=== PATIENT | male | born 1955 | race Caucasian/White ===

== ENCOUNTER 2018-08-15 12:39 | Emergency (ER) | payer MEDICARE ==
[~2018-08-15] VITALS: Ht 177.8 cm; Wt 149.7 kg
[2018-08-15 12:44] VITALS: BP 122/62
[2018-08-15] MEDS: HALOPERIDOL LACT 5 MG/ML VIAL. IVP ONE (13:09)
[2018-08-15] MEDS: ONDANSETRON PF 4 MG/2 ML VIAL. IV ONE (13:09)
[2018-08-15 13:35] LABS: BASO # 0.1 x10^3/uL (0.0-0.2); BASO % 1 % (0-3); EOS # 0.1 x10^3/uL (0.0-0.7); EOS % 1 % (0-3); HEMATOCRIT 38.6 % (39.0-53.0); HEMOGLOBIN 11.9 g/dL (13.0-17.5); LYMPH # 1.9 x10^3/uL (1.0-4.8); LYMPH % 16 % (24-48); MEAN CORPUSCULAR HEMOGLOBIN 24 pg (25-35); MEAN CORPUSCULAR HGB CONC 31 g/dL (31-37); MEAN CORPUSCULAR VOLUME 76 fL (79-100); MONO # 1.1 x10^3/uL (0.0-1.1); MONO % 9 % (0-9); NEUT # 8.7 x10^3uL (1.8-7.7); NEUT % 73 % (31-73); PLATELET COUNT 766 x10^3/uL (140-400); RED BLOOD COUNT 5.07 x10^6/uL (4.30-5.70); WHITE BLOOD COUNT 11.9 x10^3/uL (4.0-11.0)
[2018-08-15 13:47] LABS: ALBUMIN 2.2 g/dL (3.4-5.0); ALBUMIN/GLOBULIN RATIO 0.4 (1.0-1.7); CALCIUM 8.4 mg/dL (8.5-10.1); CREATININE 1.6 mg/dL (0.7-1.3); GFR 43.9; POTASSIUM 4.3 mmol/L (3.5-5.1); TOTAL BILIRUBIN 0.3 mg/dL (0.2-1.0); TOTAL PROTEIN 7.5 g/dL (6.4-8.2)
[2018-08-15 13:57] LABS: PLT ESTIMATE INCREASED (ADEQUATE)
[2018-08-15 13:59] LABS: OVALOCYTES PRESENT; POLYCHROMASIA PRESENT; TOXIC GRANULATION PRESENT
[2018-08-15 14:00] LABS: PLATELET CLUMP PRESENT
[2018-08-15] MEDS: IV NORMAL SALINE 1,000ML 1,000 ML IV ONE ×4 (14:03→16:00)
[2018-08-15] MEDS: IOHEXOL 300 MG/ML 75 ML VIAL. IV ONE (14:12)
[2018-08-15 14:22] LABS: BILIRUBIN,URINE NEG (NEG); CLARITY,URINE CLEAR; COLOR,URINE AMBER; GLUCOSE,URINE >=1000 mg/dL (NEG); NITRITE,URINE NEG (NEG); UROBILINOGEN,URINE 0.2 mg/dL (0.2 mg/dL)
[2018-08-15 14:24] LABS: BACTERIA,URINE 0 /HPF (0-FEW); RBC,URINE RARE /HPF (0-2); SQUAMOUS EPITHELIAL CELL,UR OCC /LPF; WBC,URINE RARE /HPF (0-4)
--- NOTE | 2018-08-15 14:25 | ED.ADGEN ---
Past History Past Medical History: Diabetes, Hypertension, Hypothyroid, Other Past Surgical History: Cholecystectomy Alcohol Use: None Drug Use: None Adult General Chief Complaint Chief Complaint Abdominal pain, nausea HPI HPI Patient is a 63-year-old male with history of chronic abdominal pain prior cholecystectomy and appendicitis and abdominal wall hernia presents with episodic abdominal pain with nausea the past 2 weeks. Pain is worse after eating. Denies vomiting or diarrhea. No fever chills, sweats. Patient was in the process of weaning himself from morphine which she takes for his diabetic neuropathy. Last took 3 mg of morphine. No other acute symptoms or complaints. [ ] Review of Systems Review of Systems Review symptoms as per history of present illness. All other systems were reviewed and found to be within normal limits, except as documented in this note. Current Medications Current Medications Current Medications Medications (Trade) Dose Ordered Sig/Sharif Start Time Stop Time Status Last Admin Dose Admin Haloperidol Lactate (Haldol) 2.5 mg 1X ONCE 08/15/18 13:00 08/15/18 13:02 DC 08/15/18 13:09 2.5 MG Iohexol (Omnipaque 300 Mg/ml) 75 ml 1X ONCE 08/15/18 13:45 08/15/18 13:46 DC 08/15/18 14:12 75 ML Morphine Sulfate (Morphine 10mg Syringe) 5 mg 1X ONCE 08/15/18 14:45 08/15/18 14:46 DC 08/15/18 14:48 5 MG Ondansetron HCl (Zofran) 4 mg 1X ONCE 08/15/18 13:00 08/15/18 13:02 DC 08/15/18 13:09 4 MG Piperacillin Sod/ Tazobactam Sod 4.5 gm/Sodium Chloride 50 ml @ 100 mls/hr 1X ONCE 08/15/18 15:00 08/15/18 15:29 Sodium Chloride 1,000 ml @ 1,000 mls/hr 1X ONCE 08/15/18 14:00 08/15/18 14:59 DC 08/15/18 14:03 1,000 MLS/HR Allergies Allergies Allergies Coded Allergies Type Severity Reaction Last Updated Verified No Known Drug Allergies 08/15/18 No Physical Exam Physical Exam Constitutional: Well developed, well nourished, no acute distress, non-toxic appearance. [] HENT: Normocephalic, atraumatic, bilateral external ears normal, oropharynx moist, no oral exudates, nose normal. [] Eyes: PERRLA, EOMI, conjunctiva normal, no discharge. [] Neck: Normal range of motion, no tenderness, supple, no stridor. [] Cardiovascular:Heart rate regular rhythm, no murmur [] Lungs & Thorax: Bilateral breath sounds clear to auscultation [] Abdomen: Bowel sounds normal, soft, no tenderness, left upper quadrant pain, tenderness, fullness with palpable mass. Exam limited due to obesity. [] Skin: Warm, dry, no erythema, no rash. [] Back: No tenderness, no CVA tenderness. [] Extremities: No tenderness, no cyanosis, no clubbing, ROM intact, no edema. [] Neurologic: Alert and oriented X 3, normal motor function, normal sensory function, no focal deficits noted. [] Psychologic: Affect normal, judgement normal, mood normal. [] Current Patient Data Vital Signs Vital Signs Date Time Temp Pulse Resp B/P (MAP) Pulse Ox O2 Delivery O2 Flow Rate FiO2 08/15/18 12:44 97.8 103 20 94 Room Air Lab Results Laboratory Tests Test 08/15/18 12:59 08/15/18 13:00 08/15/18 14:05 Glucose (Fingerstick) 210 mg/dL (70-99) H White Blood Count 11.9 x10^3/uL (4.0-11.0) H Red Blood Count 5.07 x10^6/uL (4.30-5.70) Hemoglobin 11.9 g/dL (13.0-17.5) L Hematocrit 38.6 % (39.0-53.0) L Mean Corpuscular Volume 76 fL (79-100) L Mean Corpuscular Hemoglobin 24 pg (25-35) L Mean Corpuscular Hemoglobin Concent 31 g/dL (31-37) Red Cell Distribution Width 17.0 % (11.5-14.5) H Platelet Count 766 x10^3/uL (140-400) H Neutrophils (%) (Auto) 73 % (31-73) Lymphocytes (%) (Auto) 16 % (24-48) L Monocytes (%) (Auto) 9 % (0-9) Eosinophils (%) (Auto) 1 % (0-3) Basophils (%) (Auto) 1 % (0-3) Neutrophils # (Auto) 8.7 x10^3uL (1.8-7.7) H Lymphocytes # (Auto) 1.9 x10^3/uL (1.0-4.8) Monocytes # (Auto) 1.1 x10^3/uL (0.0-1.1) Eosinophils # (Auto) 0.1 x10^3/uL (0.0-0.7) Basophils # (Auto) 0.1 x10^3/uL (0.0-0.2) Toxic Granulation Present Platelet Estimate Increased (ADEQUATE) Platelet Clumps, EDTA Present Large Platelets Present Polychromasia Present Ovalocytes Present Prothrombin Time 18.9 SEC (9.4-11.4) H Prothrombin Time INR 2.0 (0.9-1.1) H Sodium Level 133 mmol/L (136-145) L Potassium Level 4.3 mmol/L (3.5-5.1) Chloride Level 95 mmol/L (98-107) L Carbon Dioxide Level 26 mmol/L (21-32) Anion Gap 12 (6-14) Blood Urea Nitrogen 30 mg/dL (8-26) H Creatinine 1.6 mg/dL (0.7-1.3) H Estimated GFR (Cockcroft-Gault) 43.9 BUN/Creatinine Ratio 19 (6-20) Glucose Level 245 mg/dL (70-99) H Lactic Acid Level 5.6 mmol/L (0.4-2.0) *H Calcium Level 8.4 mg/dL (8.5-10.1) L Total Bilirubin 0.3 mg/dL (0.2-1.0) Aspartate Amino Transferase (AST) 14 U/L (15-37) L Alanine Aminotransferase (ALT) 17 U/L (16-63) Alkaline Phosphatase 115 U/L (46-116) Total Protein 7.5 g/dL (6.4-8.2) Albumin 2.2 g/dL (3.4-5.0) L Albumin/Globulin Ratio 0.4 (1.0-1.7) L Lipase 49 U/L (73-393) L Urine Collection Type Unknown Urine Color Luma Urine Clarity Clear Urine pH 6.0 Urine Specific [place] 1.010 Urine Protein Neg (NEG-TRACE) Urine Glucose (UA) >=1000 mg/dL (NEG) Urine Ketones (Stick) Neg mg/dL (NEG) Urine Blood Neg (NEG) Urine Nitrite Neg (NEG) Urine Bilirubin Neg (NEG) Urine Urobilinogen Dipstick 0.2 mg/dL (0.2 mg/dL) Urine Leukocyte Esterase Neg (NEG) Urine RBC Rare /HPF (0-2) Urine WBC Rare /HPF (0-4) Urine Squamous Epithelial Cells Occ /LPF Urine Bacteria 0 /HPF (0-FEW) EKG EKG [] Radiology/Procedures Radiology/Procedures [CT abdomen pelvis: Thick-walled sigmoid colon with ruptured of the: Extensive free intraperitoneal air, stomach distended.] Course & Med Decision Making Course & Med Decision Making Pertinent Labs and Imaging studies reviewed. (See chart for details) [Patient with perforated bowel, elevated lactic acid presumed sepsis. Aggressive IV fluids, antibiotics given. Dr. Cano on-call for general surgery to evaluate at [facility]. Dr. Nation to admit. Patient tachycardic with stable blood pressure while in the ED.] Final Impression Final Impression [1 perforated sigmoid colon 2. Sepsis ] Dragon Disclaimer Dragon Disclaimer This electronic medical record was generated, in whole or in part, using a voice recognition dictation system. GIGI LUNA DO Aug 15, 2018 14:25
[2018-08-15] MEDS: MORPHINE SULFATE 10 MG/ML SYRINGE. IV ONE (14:48)
--- NOTE | 2018-08-15 14:52 | RAD ---
CT abdomen and pelvis without contrast. HISTORY: Left lower quadrant pain CT scan the abdomen and pelvis was done without contrast. Lung bases are clear. There is no effusion. There is a pneumoperitoneum with air throughout the abdomen. There is diffuse fatty change in the liver without a focal lesion. Patient's had a cholecystectomy. Spleen and adrenal glands are normal. Pancreas is normal. There is no mass or hydronephrosis in the kidneys. The stomach is distended. There is no small bowel obstruction. There is an anterior abdominal wall hernia which contains mesentery and free air. There is thickening of the wall of the sigmoid colon. There is distention of the sigmoid. There is a focal narrowing which could be spasm or a mass in the sigmoid colon distal to the distention. Colon cancer with rupture is possible. A colitis with rupture is possible. IMPRESSION: 1. Irregular thick walled sigmoid colon with a rupture of the colon and extensive free intraperitoneal air. 2. Distended stomach. NG tube may be necessary. 3. Diffuse fatty liver. The emergency room physician was called and notified the findings at 2:46 PM FOR INTERNAL CODING PURPOSES Critical result: RESULT CODE: (C) PQRS Compliance Statement: One or more of the following individualized dose reduction techniques were utilized for this examination: 1. Automated exposure control 2. Adjustment of the mA and/or kV according to patient size 3. Use of iterative reconstruction technique Electronically signed by: Rm Garcia MD (08/15/2018 2:49 PM) [facility]
[2018-08-15] MEDS ORDERED: IV NORMAL SALINE 50ML 50 ML ONE (15:14)
[2018-08-15] MEDS ORDERED: PIPERACILLIN/TAZOBACTAM 4.5 GM VIAL IV ONE (15:15)
[2018-08-15] MEDS: PIPERACILLIN/TAZOBACTAM 4.5 GM in IV NORMAL SALINE 50ML 50 ML IV ONE (15:32)
== END 2018-08-15 16:52 | disposition short-term general hospital (02) ==
LOC: ER 12:39
DX: A41.9 Sepsis, unspecified organism (principal); K63.1 Perforation of intestine (nontraumatic); G89.29 Other chronic pain; E11.9 Type 2 diabetes mellitus without complications; I10 Essential (primary) hypertension; E03.9 Hypothyroidism, unspecified; Z90.49 Acquired absence of other specified parts of digestive tract
CPT/HCPCS: 36415; 74177; 80053; 81001; 82947; 83605; 83690; 85025; 85610; 87040; 96365; 96375; 99285; J1630; J2270; J2405; J2543; J3010; Q9967; J7030

== ENCOUNTER → 2019-01-27 | Outpatient (CLI) | payer MEDICARE ==
--- NOTE | 2019-01-27 12:38 | RAD ---
2 view study of both knees Clinical indications: Bilateral knee pain. Right knee: There is significant joint space narrowing and prominent spurring and subchondral sclerosis of the medial and lateral tibiofemoral joint compartments and the patellofemoral joint compartment. No acute fracture or lytic process is evident. There is lateral subluxation of the tibia with respect to the femur. Calcified atheromatous arterial disease is seen. Left knee: There is significant joint space narrowing and prominent spurring and subchondral sclerosis of the medial and lateral tibiofemoral joint compartments. This more severely involves the lateral tibiofemoral joint compartment. In addition, there is prominent spurring and significant joint space narrowing of the patellofemoral joint compartment. There is a prominent degenerative cyst of the medial tibial plateau. This cyst measures 3.8 cm in vertical dimension. No acute fracture or lytic process is seen. There is lateral subluxation of the tibia with respect to the femur. Calcified atheromatous arterial disease is evident. Calcified varicosity is seen medially. 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 Electronically signed by: Remigio Mcmahon MD (01/27/2019 12:35 PM) [id number]
== END | disposition home or self-care (01) ==
LOC: RAD 09:45
PROVIDERS: ATTEND Physician Assistant
DX: S83.141A Lateral subluxation of proximal end of tibia, right knee, initial encounter (principal); M17.0 Bilateral primary osteoarthritis of knee; I70.298 Other atherosclerosis of native arteries of extremities, other extremity; X58.XXXA Exposure to other specified factors, initial encounter; Y93.89 Activity, other specified; Y92.89 Other specified places as the place of occurrence of the external cause; Y99.8 Other external cause status
CPT/HCPCS: 73560

== ENCOUNTER → 2019-08-17 | Outpatient (CLI) | payer MEDICARE ==
--- NOTE | 2019-08-17 12:28 | RAD ---
EXAM: LEFT ANKLE 3 VIEWS. HISTORY: Left ankle pain. COMPARISON: None. FINDINGS: Three views of the left ankle are obtained. No fractures are identified. There is effacement of the medial weightbearing portion of the mortise joint space. Subchondral cysts within the associated talar dome measure up to 7 mm in conglomerate. A small overlying osteochondral lesion may be present. There is mild medial talar tilt. Pes planus is noted. There are dense atherosclerotic calcifications. Soft tissue calcifications within the distal leg suggest chronic venous stasis. There is is soft tissue swelling medially and laterally. There is a moderate plantar calcaneal spur. Talonavicular osteoarthritis is at least moderate. IMPRESSION: 1. Severe tibiotalar osteoarthritis. A small osteochondral lesion is suspected along the medial aspect of the talar dome with underlying subchondral cysts. 2. Soft tissue swelling. No fracture. Electronically signed by: Zahira Rollnis MD (08/17/2019 12:25 PM) [facility]
--- NOTE | 2019-08-17 13:58 | RAD ---
EXAM: Bilateral lower extremity arterial Doppler. HISTORY: Peripheral vascular disease. Nonhealing left lower extremity ulcer. COMPARISON: None. FINDINGS: Grayscale and Doppler analysis of the lower extremity arterial systems was performed bilaterally. On the right, there are triphasic waveforms through the superficial femoral artery. They become biphasic within the popliteal artery. The proximal posterior tibial artery is not visualized and is likely occluded. There is monophasic postobstructive flow within the distal posterior tibial artery consistent with reconstitution. The peroneal artery is not visualized. There is monophasic flow within the dorsalis pedis artery with peak systolic velocity 199 cm/s suggesting stenosis. On the left, there are triphasic waveforms through the popliteal artery. The proximal posterior tibial artery is not visualized and may be occluded. There is monophasic flow within the distal posterior tibial artery consistent with reconstitution. The peroneal artery is not visualized. There is monophasic flow within the anterior tibial and dorsalis pedis arteries. IMPRESSION: 1. Mildly flow-limiting stenosis within the right distal superficial femoral artery or proximal popliteal artery. 2. Monophasic flow at the ankles bilaterally consistent with significantly flow limiting trifurcation artery stenosis. The proximal posterior tibial and peroneal arteries are not visualized suggesting occlusion. Both anterior tibial arteries are visualized. Electronically signed by: Zahira Rollins MD (08/17/2019 1:55 PM) [facility]
== END | disposition home or self-care (01) ==
LOC: US 11:43
PROVIDERS: ATTEND Podiatrist Foot & Ankle Surgery
DX: E11.621 Type 2 diabetes mellitus with foot ulcer (principal); I70.243 Atherosclerosis of native arteries of left leg with ulceration of ankle; E11.51 Type 2 diabetes mellitus with diabetic peripheral angiopathy without gangrene; E11.65 Type 2 diabetes mellitus with hyperglycemia; L97.329 Non-pressure chronic ulcer of left ankle with unspecified severity; M19.072 Primary osteoarthritis, left ankle and foot; M79.89 Other specified soft tissue disorders; M77.32 Calcaneal spur, left foot
CPT/HCPCS: 73610; 93925

== ENCOUNTER 2019-10-18 19:18 | Emergency (ER) | payer MEDICARE ==
[~2019-10-18] VITALS: Ht 177.8 cm; Wt 167.6 kg
[2019-10-18 19:18] VITALS: BP 0/0
[~2019-10-18 19:18] MED LIST: EPINEPHrine SYRINGE 1 MG/10 ML SYRINGE ONE
--- NOTE | 2019-10-18 19:46 | PHYS DOC ---
Past History Past Medical History: Diabetes, Hypertension, Hypothyroid, Other Past Surgical History: Cholecystectomy Alcohol Use: None Drug Use: None Adult General Chief Complaint Chief Complaint: CPR/FULL ARREST HPI HPI Patient is a morbidly obese 64-year-old diabetic who presents via EMS in cardiac arrest. Apparently the patient had just returned from a car trip to [place]. The states he been in the car for 3 days driving. Today he developed some progressive shortness of breath and dyspnea on exertion and approximately 30 minutes prior to arrival EMS was called. In route, the patient was in respiratory distress with a heart rate of 30. EMS paced the patient. The patient was ventilated with a bag valve mask. No medications were given in route. As they pulled up to the hospital the patient lost pulse and CPR was initiated. No further history is available secondary to the critical nature of the patient's illness.[] Review of Systems Review of Systems Review of systems is unobtainable secondary to the fact the patient's in cardiac arrest Allergies Allergies Allergies Coded Allergies Type Severity Reaction Last Updated Verified No Known Drug Allergies 08/15/18 No Physical Exam Physical Exam Constitutional: Patient is unresponsive with active CPR ongoing[] HENT: Normocephalic, atraumatic. [] Eyes: Pupils are fixed and dilated[] Neck: Normal range of motion, no tenderness, supple, no stridor. [] Cardiovascular: There is a good femoral pulse with chest compressions.[] Lungs & Thorax: Coarse breath sounds bilaterally with assisted ventilations[] Abdomen: Morbidly obese with a well-healed midline surgical scar. [] Skin: Extremities were cool and mottled. [] Back: No tenderness, no CVA tenderness. [] Extremities: Trace edema bilaterally. [] Neurologic: Patient is unresponsive. [] EKG EKG [] Radiology/Procedures Radiology/Procedures [] Course & Med Decision Making Course & Med Decision Making Please see the CODE BLUE nursing sheet for exact timing of medications. Time of was 1924. Epinephrine 3 was given[] Dragon Disclaimer Dragon Disclaimer This electronic medical record was generated, in whole or in part, using a voice recognition dictation system. Departure Departure: Impression: Primary Impression: Cardiac arrest Disposition: 20 Condition: GRAVE Referrals: JULIO VILLALPANDO (PCP) ROMERO ROGERS DO Oct 18, 2019 19:46
== END 2019-10-19 11:05 | disposition expired ==
LOC: ER 19:18
DX: I46.9 Cardiac arrest, cause unspecified (principal); E11.9 Type 2 diabetes mellitus without complications; I10 Essential (primary) hypertension; E03.9 Hypothyroidism, unspecified; E66.01 Morbid (severe) obesity due to excess calories; Z68.43 Body mass index [BMI] 50.0-59.9, adult
CPT/HCPCS: 82947; 92950; 99285; J0171